=== PATIENT | female | born 1960 | race Caucasian/White ===

== ENCOUNTER 2018-03-02 20:06 | Inpatient (IN) | payer BC ==
[~2018-03-02] VITALS: Ht 170.2 cm; Wt 102.5 kg
--- NOTE | 2018-03-02 20:10 | NUR ---
58 yo female bib ra from out patient surgery. patient states she had SX on her left shoulder, after surgery she began to have substernal, dull like chest pain radaiting to her left breast. patient was assisted to er bedby EMS. noted 20 g letf FA IV started by EMS. patient was placed on security monitor. patient is noted to be tachycardic, rate od 115, skin is warm and dry, resp even and unlabored. awaiting orders from provider, will continue to monitor
--- NOTE | 2018-03-02 20:20 | NUR ---
general production laborer at bed side for blood draw
[2018-03-02 20:38] LABS: BASOPHILS # (AUTO) 0.2 /CMM (0.0-0.2); BASOPHILS % (AUTO) 1.2 % (0.0-2.0); EOSINOPHILS % (AUTO) 0.1 % (0.0-6.0); HEMATOCRIT 38 % (33-45); HEMOGLOBIN 12.8 g/dL (11.5-14.8); LYMPHOCYTES # (AUTO) 0.6 /CMM (0.8-4.8); LYMPHOCYTES % (AUTO) 4.2 % (20.0-44.0); MEAN CORPUSCULAR HEMOGLOBIN 30 PG (26.0-33.0); MEAN CORPUSCULAR HGB CONC 34 g/dl (31.0-36.0); MEAN CORPUSCULAR VOLUME 88 fL (82-100); MONOCYTES # (AUTO) 0.3 /CMM (0.1-1.30); NEUTROPHILS # (AUTO) 13.3 /CMM (1.8-8.9); NEUTROPHILS % (AUTO) 92.5 % (43.0-81.0); PLATELET COUNT (AUTO) 275 /CMM (150-450); RDW COEFFICIENT OF VARIATION 14.1 (11.5-15.0); RED BLOOD CELL COUNT(AUTO) 4.32 MIL/uL (4.0-5.2); WHITE BLOOD COUNT (AUTO) 14.4 K/uL (4.3-11.0)
[2018-03-02 20:48] LABS: CALCIUM, SERUM 7.7 mg/dL (8.5-10.1); CARBON DIOXIDE 18 mmol/L (21-32); CHLORIDE 104 mmol/L (98-107); CREATININE 1.7 mg/dL (0.6-1.3); GLUCOSE 277 mg/dL (74-106); POTASSIUM 3.8 mmol/L (3.5-5.1); SODIUM SERUM 137 mmol/L (136-145); UREA NITROGEN, BLOOD 20 mg/dL (7-18)
[2018-03-02 20:49] LABS: INR 1.03 (0.87-1.13)
[2018-03-02 20:57] LABS: TROPONIN I < 0.017 ng/mL (0.00-0.056)
--- NOTE | 2018-03-02 21:06 | NUR ---
Elvin montesinos in [facility] - 03/02/18 at 2127 by CHRISTINE [id number] TELE
--- NOTE | 2018-03-02 21:27 | NUR ---
UPDATED [id number] TELE
[2018-03-02] MEDS ORDERED: ACETAMINOPHEN ES 500 MG TABLET PO ONE (21:30)
[2018-03-02] MEDS ORDERED: IV NS 0.9% 1,000 ML BAG IV ONE (21:30)
[2018-03-02 22:15] VITALS: BP 124/84
--- NOTE | 2018-03-02 22:25 | NUR ---
AGRICULTURE INSPECTOR -ADMISSION NOTES Patient admitted from ER for chest pain. Patient was in surgery this morning on right shoulder rotating cuff fixation. After surgery, patient experienced chest pain and was brought in to [facility] ER. Alert and oriented x4, verbally responsive. Complaints of chest pain 5/10, "It's like a baseball hit me on my chest". Hospitalist assessed patient. Skin body assessment done but refused to have surgical incision removed. IV on left forearm #20g; patent and intact. Tele monitor shows Sinus tachy; HR 107. No SOB or labored breathing noted. Not in any type of distress. Safety measures in place. Will continue to monitor and assess patient.
[2018-03-02] MEDS ORDERED: MAGNESIUM HYDROXIDE 30 ML UDC PO PRN (23:00)
[2018-03-02] MEDS ORDERED: HYDROCODONE/APAP 5/325MG 1 EACH TABLET PO PRN (23:00)
[2018-03-02] MEDS ORDERED: ZOLPIDEM TARTRATE 5 MG TABLET PO PRN (23:00)
[2018-03-02] MEDS ORDERED: MORPHINE SULFATE INJ 2 MG/ML DISP.SYRIN IV PRN (23:00)
[2018-03-02] MEDS ORDERED: Z GUARD REMEDY 2 OZ OINT TP PRN (23:00)
[2018-03-02] MEDS ORDERED: MAG HYDROX/AL HYDROX/SIMETH 30 ML UDC PO PRN (23:00)
[2018-03-02] MEDS ORDERED: ONDANSETRON HCL/PF 4 MG/2 ML VIAL IVP PRN (23:00)
[2018-03-02] MEDS ORDERED: AMLO10TA2 PO (23:26)
[2018-03-02] MEDS ORDERED: SUMA100T16 PO (23:26)
[2018-03-02] MEDS ORDERED: SITA100T PO (23:26)
[2018-03-02] MEDS ORDERED: METF10004 PO (23:26)
[2018-03-02] MEDS ORDERED: HYDR12.55 PO (23:26)
[2018-03-02] MEDS ORDERED: LEVO25TA7 PO (23:26)
[2018-03-02] MEDS ORDERED: LOSA1TAB42 PO (23:26)
[2018-03-02] MEDS ORDERED: NADO40TA18 PO (23:26)
[2018-03-02] MEDS ORDERED: SIMV20TA6 PO (23:26)
[2018-03-02] MEDS ORDERED: HYDR25TA4 PO (23:26)
[2018-03-02] MEDS ORDERED: FAMO40TA7 PO (23:26)
[2018-03-02] MEDS ORDERED: OMEP20CA10 PO (23:26)
[2018-03-02] MEDS ORDERED: ASPI-1152 PO (23:26)
[2018-03-02] MEDS ORDERED: TRIA0.252 PO (23:26)
[2018-03-02] MEDS ORDERED: ENOXAPARIN SODIUM 40 MG/0.4 ML DISP.SYRIN SQ ONE (23:30)
[2018-03-03] MEDS ORDERED: DEXTROSE 50%-WATER 50 ML DISP.SYRIN IV PRN (00:30)
[2018-03-03] MEDS ORDERED: *INSULIN REGULAR(HUMULIN R)HUM 100 UNIT/ML VIAL SQ PRN (00:30)
[2018-03-03] MEDS ORDERED: TEMAZEPAM 7.5 MG CAPSULE PO PRN (00:30)
[2018-03-03 00:51] VITALS: BP 124/71
[2018-03-03] MEDS ORDERED: SUMATRIPTAN SUCCINATE 25 MG TABLET PO PRN (01:00)
[2018-03-03] MEDS: NITROGLYCERIN PACKET 1 GM PACKET TOP SCH ×2 (01:15→13:18)
[2018-03-03] MEDS: ACETAMINOPHEN 325 MG TABLET PO PRN ×2 (01:15→10:56)
[2018-03-03 03:04] LABS: BASOPHILS % (AUTO) 0.1 % (0.0-2.0); HEMATOCRIT 33 % (33-45); LYMPHOCYTES # (AUTO) 0.8 /CMM (0.8-4.8); MEAN CORPUSCULAR HEMOGLOBIN 30 PG (26.0-33.0); MEAN CORPUSCULAR HGB CONC 33 g/dl (31.0-36.0); MEAN CORPUSCULAR VOLUME 90 fL (82-100); MONOCYTES # (AUTO) 0.5 /CMM (0.1-1.30); MONOCYTES % (AUTO) 4.3 % (2.0-12.0); NEUTROPHILS # (AUTO) 10.3 /CMM (1.8-8.9); NEUTROPHILS % (AUTO) 88.6 % (43.0-81.0); PLATELET COUNT (AUTO) 226 /CMM (150-450); RDW COEFFICIENT OF VARIATION 14.9 (11.5-15.0); RED BLOOD CELL COUNT(AUTO) 3.67 MIL/uL (4.0-5.2); WHITE BLOOD COUNT (AUTO) 11.6 K/uL (4.3-11.0)
[2018-03-03] MEDS ORDERED: ETAN25KI2 SQ (03:12)
[2018-03-03 03:17] LABS: CALCIUM, SERUM 7.7 mg/dL (8.5-10.1); CREATININE 1.4 mg/dL (0.6-1.3); PHOSPHORUS 2.3 mg/dL (2.5-4.9); POTASSIUM 4.1 mmol/L (3.5-5.1)
[2018-03-03 03:22] LABS: MAGNESIUM 1.2 mg/dL (1.8-2.4)
--- NOTE | 2018-03-03 03:26 | NUR ---
POT WASHER - CRITICAL RESULT Critical result of Magnessium 1.2 reported to Perfecto Blake, AUTO SPECIALTY SERVICES MANAGER No new orders
[2018-03-03 03:29] LABS: THYROID STIMULATING HORMONE 0.547 uIU/mL (0.358-3.74)
[2018-03-03 04:30] VITALS: BP 98/63
[2018-03-03 04:31] VITALS: BP 98/63
[2018-03-03] MEDS: Magnesium 1GM/D5W 100ML PREMIX 100 ML IV SCH ×2 (04:58→06:04)
[2018-03-03] MEDS: BLOOD SUGAR DIAGNOSTIC 1 EACH STRIP IN SCH ×2 (06:55→12:23)
[2018-03-03] MEDS: INSULIN REGULAR, HUMAN 100 UNIT/ML 3 ML VIAL SQ PRN ×2 (07:04→12:31)
[2018-03-03] MEDS ORDERED: LEVOTHYROXINE SODIUM 25 MCG TABLET PO SCH (07:30)
[2018-03-03] MEDS ORDERED: PANTOPRAZOLE 40 MG TABLET.DR PO SCH (07:30)
--- NOTE | 2018-03-03 07:30 | NUR ---
RN OPENING NOTES PATIENT RECEIVED AWAKE ALERT AND VERBALLY RESPONSIVE, ABLE TO MAKE NEEDS KNOWN. RESPIRATIONS EVEN AND UNLABORED, DENIES ANY PAIN OR DISCOMFORT AT THIS TIME. IV ACCESS TO LFA PATENT AND INTACT NO REDNESS OR INFILTRATION NOTED. CALL LIGHT WITHIN EASY REACH, KEPT CLEAN DRY AND COMFORTABLE CALL LIGHT WITHIN EASY REACH WILL CONTINUE TO MONITOR, PT FOR STRESS TEST TODAY NPO AT THIS TIME
--- NOTE | 2018-03-03 07:39 | NUR ---
ORACLE ADF CONSULTANT CLOSING NOTES Report given. Patient intermittently asleep, easily aroused. Alert and oriented x4. All needs anticipated and met. Magnesium replaced. IV on LFA 20g: patent and intact. NPO after midnight. Continues to complain of chest pain 11/24. Dr. Suarez came to see patient. Safety measures in place. Bed in lowest position with bed alarm on and call light within reach. Endorsed to GRECIA Sumner
[2018-03-03 08:00] VITALS: BP 98/59
[2018-03-03] MEDS: IV NS 0.9% 1,000 ML IV SCH ×2 (08:00→13:21)
[2018-03-03] MEDS ORDERED: REGADENOSON 0.4 MG/5 ML DISP.SYRIN IVP ONE (08:30)
[2018-03-03] MEDS ORDERED: NEUTRA PHOS 1 POWD.PACKET PO SCH (08:30)
--- NOTE | 2018-03-03 08:50 | NUR ---
RN NOTES/STRESS TEST PT TAKEN TO STRESS TEST BY TRANSPORTER IN STABLE CONDITION, WILL CONTINUE TO MONITOR UPON RETURN TO UNIT
[2018-03-03] MEDS ORDERED: ASPIRIN EC 81 MG TABLET.DR PO SCH ×3 (09:00)
[2018-03-03] MEDS ORDERED: HYDROCHLOROTHIAZIDE 25 MG TABLET PO SCH (09:00)
--- NOTE | 2018-03-03 09:59 | NUR ---
WOUND CARE CONSULT: PT NOT SEEN DUE TO PT OFF UNIT AT THIS TIME. CURRENT VENUS SCORE IS 19. PER NURSING STAFF, PT TO FOLLOW UP WITH HER ORTHO SURGEON.
--- NOTE | 2018-03-03 10:49 | NUR ---
RN NOTES PT BACK FROM STRESS TEST OKAY TO EAT WILL CONTINUE TO MONITOR
--- NOTE | 2018-03-03 11:21 | NUR ---
RN NOTES PT TAKEN TO SECOND HALF OF STRESS TEST WILL CONTINUE TO MONITOR UPON RETURN
[2018-03-03 13:18] VITALS: BP 103/68
--- NOTE | 2018-03-03 14:15 | NUR ---
RN CLOSING/DISCHARGE NOTES PATIENT AWAKE ALERT AND VERBALLY RESPONSIVE, ABLE TO MAKE NEEDS KNOWN. RESPIRATIONS EVEN AND UNLABORED, DENIES ANY PAIN OR DISCOMFORT AT THIS TIME. IV ACCESS TO LFA AND ID BAND REMOVED WITH NO ASE NOTED. PER DR. BLAS, STRESS TEST IS NEGATIVE CLEARED TO OKAY. DR. LYNCH WITH DC ORDERS, PT AWARE. ALL DISCHARGE ORDERS REVIEWED WITH PT WITH NOTED VERBAL UNDERSTANDING NOTED. ALL BELONGINGS ACCOUNTED FOR, DISCHARGED IN STABLE CONDITION, ASSISTED TO LOBBY BY RN Addendum: 03/03/18 at 1613 by MANISHA MACDONALD RN RN NOTES PICTURES OF SKIN WITHIN 24 H, TIME OF DC IS 1781
--- NOTE | 2018-03-03 14:26 | NUR ---
NM: CARDIAC STRESS TEST WAS COMPLETED. TECH:RB
[2018-03-03] MEDS ORDERED: NADOLOL 40 MG TABLET PO SCH ×2 (18:00)
[2018-03-03] MEDS ORDERED: METOPROLOL SUCCINATE 50 MG TAB.SR.24H PO SCH (18:00)
[2018-03-03] MEDS ORDERED: SIMVASTATIN 20 MG TABLET PO SCH (18:00)
[2018-03-03] MEDS ORDERED: AMLODIPINE BESYLATE 10 MG TABLET PO SCH (18:00)
[2018-03-03] MEDS ORDERED: ENOXAPARIN SODIUM 40 MG/0.4 ML DISP.SYRIN SQ SCH (21:00)
[2018-03-03] MEDS ORDERED: INSULIN GLARGINE, 100 UNIT/ML CARTRIDGE SQ SCH (22:00)
== END 2018-03-03 16:15 | disposition home or self-care (01) | DRG 205 ==
LOC: ER 20:08 → TELE 21:32 → MED 03-03 08:08
PROVIDERS: ADMIT Hospitalist; ATTEND Hospitalist
DX: M94.0 Chondrocostal junction syndrome [Tietze] (principal); N17.0 Acute kidney failure with tubular necrosis; R65.10 Systemic inflammatory response syndrome (SIRS) of non-infectious origin without acute organ dysfunction; E11.65 Type 2 diabetes mellitus with hyperglycemia; K21.9 Gastro-esophageal reflux disease without esophagitis; E78.5 Hyperlipidemia, unspecified; E03.9 Hypothyroidism, unspecified; M19.90 Unspecified osteoarthritis, unspecified site; I51.7 Cardiomegaly; D72.829 Elevated white blood cell count, unspecified; E83.42 Hypomagnesemia; E83.51 Hypocalcemia; E66.01 Morbid (severe) obesity due to excess calories; Z68.35 Body mass index [BMI] 35.0-35.9, adult; E86.9 Volume depletion, unspecified; I10 Essential (primary) hypertension
CPT/HCPCS: 36415; 71045-TC; 80048-TC; 80061-TC; 82962-TC; 83735-TC; 84100-TC; 84443-TC; 84484-TC; 85025-TC; 85730-TC; 87081-TC; 93307-TC; A4606; A6253; A9502; J1650; J1815; J2785; J3475; J7030; Z7610